=== PATIENT | female | born 1965 | race Caucasian/White ===

== ENCOUNTER 2016-12-20 17:25 | Emergency (ER) | payer OTHER ==
[~2016-12-20] VITALS: Ht 167.6 cm; Wt 4.0 kg
[2016-12-20 17:28] VITALS: TEMP 36.6; Ht 167.6 cm; Wt 4.0 kg
[2016-12-20] MEDS ORDERED: ONDANSETRON INJ 2 MG/ML 2 ML VIAL IV STA (17:40)
[2016-12-20] MEDS ORDERED: SODIUM CHLORIDE 0.9% 1000ML 1,000 ML IV STA (17:40)
[2016-12-20 17:42] VITALS: O2SAT 98
[2016-12-20] MEDS ORDERED: MoRPHine SULFATE 4 MG/ML 1 ML CARP\\VIAL IV PRN (17:45)
--- NOTE | 2016-12-20 17:49 | EMERGENCY ROOM VISIT NOTE ---
History Report prepared by Jodie: Ted Hickey Under the Supervision of: Dr. Garret Art D.O. First contact with patient: 17:31 Chief Complaint: CARDIAC ASSESSMENT Stated Complaint: HEADACHE, DIZZY, PALIPTATIONS- PHYSICIAN REFERRED Nursing Triage Summary: pt reports MCNAMARA x 8 days , pt reports intermittent dizziness and palpitaitons over the last 8 days , reports nausea today History of Present Illness The patient is a 51 year old female who presents to the Emergency Room with complaints of persistent palpitations for the past 8 days. The patient also complains of a headache, feeling dizzy and nauseous with occasional episodes of vomiting. She also notes that she has being having palpitations and with these she has had chest pain and shortness of breath which are getting worse. The patient notes that she has been falling more than usual lately noting that she has fallen twice in the past two weeks. She has been experiencing symptoms similar to these since September and has been presenting to her PCP who recommended today that she come to the ED for further evaluation. She has had a carotid ultrasound, a Holter monitor, and EEG. The Holter monitor showed some occasional PACs and PVCs. She notes she was not experiencing her symptoms while she was wearing the halter monitor. She denies abdominal pain at this time. Source of History: patient Onset: 8 days Position: chest Timing: other (persistent) Associated Symptoms: + SOB, + chest pain, + headache, + nausea, + vomiting, No abdominal pain Note: Other associated symptoms: dizzy, palpitations Review of Systems See HPI for pertinent positives & negatives. A total of 10 systems reviewed and were otherwise negative. Past Medical & Surgical Medical Problems: (1) DVT (deep venous thrombosis) (2) Hypertension (3) Ulcer Family History Patient reports no known family medical history. Social History Smoking Status: Current Every Day Smoker Marital Status: Housing Status: lives with family Occupation Status: unemployed Current/Historical Medications Scheduled Lisinopril (Lisinopril), 20 MG PO QAM Nifedipine Ext Rel (Procardia Xl Ext Rel), 30 MG PO QAM Simvastatin (Zocor), 40 MG PO QPM Trazodone Hcl (Trazodone), 50 MG PO HS Scheduled PRN Acetaminophen (Tylenol), 2,000 MG PO Q3 PRN for Headache Allergies Coded Allergies: Clarithromycin (Unverified Allergy, Unknown, HIVES, 12/20/16) Hydromorphone (Unverified Allergy, Unknown, bradycardia, 12/20/16) Prochlorperazine (Unverified Allergy, Unknown, NAUSEA, 12/20/16) Physical Exam Vital Signs Date Time Temp Pulse Resp B/P Pulse Ox O2 Delivery O2 Flow Rate FiO2 12/20/16 19:00 72 18 160/87 100 Room Air 12/20/16 18:31 72 12/20/16 18:24 66 22 163/83 100 Room Air 12/20/16 17:43 78 18 156/98 96 Room Air 12/20/16 17:42 98 Room Air 12/20/16 17:42 98 Room Air 12/20/16 17:28 36.6 77 20 188/93 97 Room Air Physical Exam GENERAL: Patient is awake alert in no acute distress patient is resting comfortably and showing no signs of anxiety EYES: The conjunctivae are clear. The pupils are round and reactive. EARS, NOSE, MOUTH AND THROAT: The nose is without any evidence of any deformity. Mucous membranes are moist tongue is midline NECK: The neck is nontender and supple. RESPIRATORY: Normal respiratory effort is noted there is no evidence of wheezing rhonchi or rales CARDIOVASCULAR: Regular rate and rhythm noted there no murmurs rubs or gallops normal S1 normal S2 GASTROINTESTINAL: The abdomen is soft. Bowel sounds are present in all quadrants. Abdomen is nontender MUSCULOSKELETAL/EXTREMITIES: There is no evidence of gross deformity full range of motion is noted in the hips and shoulders SKIN: There is no obvious evidence of any rash. There are no petechiae, pallor or cyanosis noted. Pedal edema bilaterally, left greater than right. No specific calf tenderness, Pulses are symmetric bilaterally. NEUROLOGIC: Patient is awake alert and oriented x3 Medical Decision & Procedures ER Provider Diagnostic Interpretation: Radiology results as stated below per my review and radiologist interpretation: HEAD CT NONCONTRAST CT DOSE: 537.48 mGy.cm HISTORY: Headaches MCNAMARA TECHNIQUE: Multiaxial CT images of the head were performed without the use of intravenous contrast. Comparison: None. Findings: The paranasal sinuses and mastoid air cells are clear. The calvarium and skull base are intact. The ventricles and sulci are within normal limits. There is no mass, hematoma, midline shift, or acute infarct. Impression: No acute intracranial abnormality. Electronically signed by: Portillo Paredes M.D. 12/20/2016 6:18 PM Dictated Date/Time: 12/20/2016 6:18 PM CHEST ONE VIEW PORTABLE CLINICAL HISTORY: CHEST PAIN dyspnea COMPARISON STUDY: No previous studies for comparison. FINDINGS: The bones soft tissues and hemidiaphragms are normal. The cardiomediastinal silhouette is normal. The lungs are clear. The pulmonary vasculature is normal. IMPRESSION: Negative chest. Electronically signed by: Portillo Paredes M.D. 12/20/2016 6:07 PM Dictated Date/Time: 12/20/2016 6:07 PM Laboratory Results 12/20/16 17:50 Red Blood Count 4.52, Mean Corpuscular Volume 90.3, Mean Corpuscular Hemoglobin 31.2, Mean Corpuscular Hemoglobin Concent 34.6, Mean Platelet Volume 9.3, Neutrophils (%) (Auto) 58.0, Lymphocytes (%) (Auto) 29.9, Monocytes (%) (Auto) 7.6, Eosinophils (%) (Auto) 3.9, Basophils (%) (Auto) 0.4, Neutrophils # (Auto) 3.28, Lymphocytes # (Auto) 1.69, Monocytes # (Auto) 0.43, Eosinophils # (Auto) 0.22, Basophils # (Auto) 0.02 12/20/16 17:50 Test 12/20/16 17:50 12/20/16 17:57 White Blood Count 5.65 K/uL (4.8-10.8) Red Blood Count 4.52 M/uL (4.2-5.4) Hemoglobin 14.1 g/dL (12.0-16.0) Hematocrit 40.8 % (37-47) Mean Corpuscular Volume 90.3 fL (80-100) Mean Corpuscular Hemoglobin 31.2 pg (25-34) Mean Corpuscular Hemoglobin Concent 34.6 g/dl (32-36) Platelet Count 226 K/uL (130-400) Mean Platelet Volume 9.3 fL (7.4-10.4) Neutrophils (%) (Auto) 58.0 % Lymphocytes (%) (Auto) 29.9 % Monocytes (%) (Auto) 7.6 % Eosinophils (%) (Auto) 3.9 % Basophils (%) (Auto) 0.4 % Neutrophils # (Auto) 3.28 K/uL (1.4-6.5) Lymphocytes # (Auto) 1.69 K/uL (1.2-3.4) Monocytes # (Auto) 0.43 K/uL (0.11-0.59) Eosinophils # (Auto) 0.22 K/uL (0-0.5) Basophils # (Auto) 0.02 K/uL (0-0.2) RDW Standard Deviation 42.6 fL (36.4-46.3) RDW Coefficient of Variation 13.1 % (11.5-14.5) Immature Granulocyte % (Auto) 0.2 % Immature Granulocyte # (Auto) 0.01 K/uL (0.00-0.02) Prothrombin Time 10.7 SECONDS (9.0-12.0) Prothromb Time International Ratio 1.0 (0.9-1.1) Activated Partial Thromboplast Time 25.4 SECONDS (21.0-31.0) Partial Thromboplastin Ratio 1.0 Anion Gap 7.0 mmol/L (3-11) Est Creatinine Clear Calc Drug Dose 5.4 ml/min Estimated GFR () 101.2 Estimated GFR (Non- 87.3 BUN/Creatinine Ratio 11.4 (10-20) Calcium Level 9.8 mg/dl (8.5-10.1) Magnesium Level 2.0 mg/dl (1.8-2.4) Total Bilirubin 0.5 mg/dl (0.2-1) Direct Bilirubin 0.1 mg/dl (0-0.2) Aspartate Amino Transf (AST/SGOT) 11 U/L (15-37) Alanine Aminotransferase (ALT/SGPT) 25 U/L (12-78) Alkaline Phosphatase 57 U/L (45-117) Total Creatine Kinase 72 U/L (26-192) Creatine Kinase MB 1.0 ng/ml (0.5-3.6) Creatine Kinase MB Ratio 1.4 (0-3.0) Troponin I < 0.015 ng/ml (0-0.045) Total Protein 7.2 gm/dl (6.4-8.2) Albumin 3.8 gm/dl (3.4-5.0) Lipase 135 U/L (73-393) Thyroid Stimulating Hormone (TSH) 0.991 uIu/ml (0.300-4.500) Free Thyroxine 1.15 ng/dl (0.80-1.60) Human Chorionic Gonadotropin, Qual NEG (NEG) Bedside D-Dimer 250 ng/mlFEU (0-450) Laboratory results per my review. Medications Administered Medications (Trade) Dose Ordered Sig/Nicki Route Start Time Stop Time Status Last Admin Dose Admin Ondansetron HCl (Zofran Inj) 4 mg NOW STAT IV 12/20/16 17:40 12/20/16 17:42 DC 12/20/16 17:50 4 MG Morphine Sulfate 4 mg 4 mg Q15M PRN IV 12/20/16 17:45 01/03/17 17:44 12/20/16 17:51 4 MG Sodium Chloride (Nss 1000ml) 1,000 ml @ 999 mls/hr Q1H1M STAT IV 12/20/16 17:40 12/20/16 18:40 DC 12/20/16 17:50 999 MLS/HR ECG Indication: palpitations Rate (beats per minute): 79 Rhythm: normal sinus Findings: Q waves (Anterior), no ectopy, other (no ST segment abnormality, poor r wave progression) ED Course 1734: The patient was evaluated in room A10. A complete history and physical examination were performed. 1739: Ordered NSS 1000 ml @ 999 mls/hr IV, Zofran Inj 4 mg IV. 1744: Ordered Morphine Sulfate 4 mg IV/pain. 1905: At this time, I reevaluated the patient and she is still not feeling any better. 1956: At this time, I discussed the patient's case with Dr. Webster - Hospitalist [facility] and he agreed to accept the patient for further evaluation. Medical Decision Differential diagnosis: Etiologies such as premature contractions, electrolyte abnormality, cardiac dysrhythmia, thyroid dysfunction, pulmonary embolism, infection, gastrointestinal, as well as others were entertained. Nursing notes reviewed. The patient is a 51-year-old female who presented to the department for an evaluation of chest discomfort dizziness and headache. The patient states that she's had symptoms which have been ongoing for a few months. She states that she went to see her primary care physician and was sent to our emergency apartment for further cardiac workup. The patient has a family history of sudden cardiac and was very concerned about the palpitations she's been having. She did have a Holter monitor which did not capture any dysrhythmia. I discussed the patient's laboratory and radiographic studies with her. She was treated with IV fluids IV pain medicine and IV antiemetics in the emergency department. She continued to have chest discomfort and I think this is the main reason she came to our emergency Department she was concerned about a cardiac event. I discussed the limitations of the emergency department workup for chest pain with her. Because of her ongoing symptoms I discussed his case with the on- call [facility] hospitalist group. They have agreed to evaluate the patient in the emergency department for further management and disposition. Consults Time Called: 1941 Consulting Physician: Dr. Webster - Hospitalist [facility] Returned Call: 1956 At this time, I discussed the patient's case with Dr. Webster and he agreed to accept the patient for further evaluation. Impression Primary Impression: Precordial chest pain Additional Impressions: Headache Palpitations Scribe Attestation The scribe's documentation has been prepared under my direction and personally reviewed by me in its entirety. I confirm that the note above accurately reflects all work, treatment, procedures, and medical decision making performed by me. Departure Information Dispostion Being Evaluated By Hospitalist Referrals No Doctor, Assigned (PCP) Problem Qualifiers
[2016-12-20] MEDS ORDERED: SIMV40TA2 PO (17:51)
[2016-12-20] MEDS ORDERED: TRAZ50TA35 PO (17:51)
[2016-12-20] MEDS ORDERED: NIFE30TA83 PO (17:51)
[2016-12-20] MEDS ORDERED: LSN20 PO (17:51)
[2016-12-20] MEDS ORDERED: ACET-1256 PO (17:52)
[2016-12-20 18:01] LABS: BASO % 0.4 %; BASO ABS # 0.02 K/uL (0-0.2); COMPLETE YES; EOS % 3.9 %; HEMATOCRIT 40.8 % (37-47); IG% 0.2 %; LYMPH % 29.9 %; LYMPH ABS # 1.69 K/uL (1.2-3.4); MEAN CELL VOLUME 90.3 fL (80-100); MEAN CORPUSCULAR HEMOGLOBIN 31.2 pg (25-34); MEAN CORPUSCULAR HGB CONC 34.6 g/dl (32-36); MEAN PLATELET VOLUME 9.3 fL (7.4-10.4); MONO % 7.6 %; PLATELET COUNT 226 K/uL (130-400); RED BLOOD COUNT 4.52 M/uL (4.2-5.4); WHITE BLOOD COUNT 5.65 K/uL (4.8-10.8)
--- NOTE | 2016-12-20 18:09 | DIAGNOSTIC IMAGING REPORT ---
CHEST ONE VIEW PORTABLE CLINICAL HISTORY: CHEST PAIN dyspnea COMPARISON STUDY: No previous studies for comparison. FINDINGS: The bones soft tissues and hemidiaphragms are normal. The cardiomediastinal silhouette is normal. The lungs are clear. The pulmonary vasculature is normal. IMPRESSION: Negative chest. Electronically signed by: Portillo Paredes M.D. 12/20/2016 6:07 PM Dictated Date/Time: 12/20/2016 6:07 PM
[2016-12-20 18:12] LABS: PROTHROMBIN TIME (PATIENT) 10.7 SECONDS (9.0-12.0)
[2016-12-20 18:20] LABS: ALT/SGPT 25 U/L (12-78); AST/SGOT 11 U/L (15-37); BLOOD UREA NITROGEN 9 mg/dl (7-18); BUN/CREATININE RATIO 11.4 (10-20); CALCIUM 9.8 mg/dl (8.5-10.1); CARBON DIOXIDE 25 mmol/L (21-32); CHLORIDE 107 mmol/L (98-107); CREATININE 0.79 mg/dl (0.60-1.20); GLUCOSE 94 mg/dl (70-99); POTASSIUM 3.9 mmol/L (3.5-5.1); SODIUM 139 mmol/L (136-145)
--- NOTE | 2016-12-20 18:20 | DIAGNOSTIC IMAGING REPORT ---
HEAD CT NONCONTRAST CT DOSE: 537.48 mGy.cm HISTORY: Headaches MCNAMARA TECHNIQUE: Multiaxial CT images of the head were performed without the use of intravenous contrast. Comparison: None. Findings: The paranasal sinuses and mastoid air cells are clear. The calvarium and skull base are intact. The ventricles and sulci are within normal limits. There is no mass, hematoma, midline shift, or acute infarct. Impression: No acute intracranial abnormality. Electronically signed by: Portillo Paredes M.D. 12/20/2016 6:18 PM Dictated Date/Time: 12/20/2016 6:18 PM
[2016-12-20 18:28] LABS: ALKALINE PHOSPHATASE 57 U/L (45-117); CKMB/CK RATIO 1.4 (0-3.0); THYROID STIMULATING HORMONE 0.991 uIu/ml (0.300-4.500)
[2016-12-20 18:31] LABS: PREG INTERNAL NEGATIVE QC NEG CLEAR BACKGROUND; PREG INTERNAL POSITIVE QC POS CONTROL LINE
--- NOTE | 2016-12-20 21:23 | History and Physical ---
History & Physical Date & Time of Service: Dec 20, 2016 at 21:05 Chief Complaint: Headache, Dizzy, Paliptations- Physician Referred Primary Care Physician: No Doctor, Assigned History of Present Illness Source: patient 51 y/o F w/Hx recurrent near-syncopal episodes, HTN, chronic palpitations, tobacco abuse. Pt apparently has been feeling unwell for at least over 1 year and exceptionally poorly for 3 or more months. She describes a constellation of symptoms which include generalized body aches, near syncopal episodes, palpitations, SOB and intermittent central CP. She has had an extensive cardiac workup including recent Halter monitoring, negative stress testing and a cardiac cath 11/04 showing minor luminal irregularities on her RCA and LAD. Report from recent ambulatory monitoring states that there were no significant arrhythmias - occasional PACs or PVCs were seen. She has had difficult to control HTN and was evaluated for Pheochromocytoma recently which was also negative. Due to her persistent symptoms, she was sent to [facility] for evaluation by her primary MD. ER evaluation revealed a mildly elevated BP, normal labs and an EKG without any acute changes. Past Medical/Surgical History Medical Problems: (1) DVT (deep venous thrombosis) Status: Resolved (2) Hypertension Status: Chronic (3) Ulcer Status: Resolved Family History Patient reports no known family medical history. Social History Smoking Status: Current Every Day Smoker Marital Status: Occupational Status: unemployed Multi-Drug Resistant Organisms History of MDRO: No Allergies Coded Allergies: Clarithromycin (Unverified Allergy, Unknown, HIVES, 12/20/16) Hydromorphone (Unverified Allergy, Unknown, bradycardia, 12/20/16) Prochlorperazine (Unverified Allergy, Unknown, NAUSEA, 12/20/16) Home Medications Scheduled Lisinopril (Lisinopril), 20 MG PO QAM Nifedipine Ext Rel (Procardia Xl Ext Rel), 30 MG PO QAM Simvastatin (Zocor), 40 MG PO QPM Trazodone Hcl (Trazodone), 50 MG PO HS Scheduled PRN Acetaminophen (Tylenol), 2,000 MG PO Q3 PRN for Headache Review of Systems Constitutional: No chills, No fever, No sweats Eyes: No eye pain, No worsening of vision ENT: No hearing loss, No nasal symptoms, No unusual epistaxis Respiratory: + dyspnea at rest, + dyspnea on exertion, + shortness of breath, No cough, No sputum, No wheezing Cardiovascular: + chest pain, No PND, No claudication, No edema, No orthopnea Abdomen: + nausea, No pain, No vomiting Musculoskeletal: + joint pain, + muscle pain Genitourinary - Female: No dysuria, No urinary frequency, No urinary urgency Neurologic: + problem reported (headache), + weakness, No memory loss, No paralysis Psychiatric: + depression symptoms Endocrine: + fatigue Hematologic / Lymphatic: No abnormal bleeding/bruising Integumentary: No rash Allergic / Immunologic: No environmental allergies Physical Exam Vital Signs Date Time Temp Pulse Resp B/P Pulse Ox O2 Delivery O2 Flow Rate FiO2 12/20/16 20:00 72 18 97/89 100 Room Air 12/20/16 19:00 72 18 160/87 100 Room Air 12/20/16 18:31 72 12/20/16 18:24 66 22 163/83 100 Room Air 12/20/16 17:43 78 18 156/98 96 Room Air 12/20/16 17:42 98 Room Air 12/20/16 17:42 98 Room Air 12/20/16 17:28 36.6 77 20 188/93 97 Room Air General Appearance: WD/WN, no apparent distress Head: normocephalic, atraumatic Eyes: normal inspection, EOMI ENT: normal ENT inspection, hearing grossly normal, TMs normal, pharynx normal Neck: supple, thyroid normal Respiratory/Chest: chest non-tender, lungs clear, normal breath sounds, no respiratory distress, no accessory muscle use Cardiovascular: regular rate, rhythm, no edema, no gallop, no JVD, no murmur, normal peripheral pulses Abdomen/GI: normal bowel sounds, non tender, soft Back: normal inspection, no muscle spasm Extremities/Musculoskelatal: normal inspection, no calf tenderness, normal capillary refill, no pedal edema, normal range of motion 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, no motor/sensory deficits, alert, normal mood/affect, normal reflexes, oriented x 3 Skin: normal color, warm/dry, no rash, + pertinent finding (facial hirsutism ) Diagnostics Laboratory Results Results Past 24 Hours Test 12/20/16 17:50 12/20/16 17:57 Range/Units White Blood Count 5.65 4.8-10.8 K/uL Red Blood Count 4.52 4.2-5.4 M/uL Hemoglobin 14.1 12.0-16.0 g/dL Hematocrit 40.8 37-47 % Mean Corpuscular Volume 90.3 80-100 fL Mean Corpuscular Hemoglobin 31.2 25-34 pg Mean Corpuscular Hemoglobin Concent 34.6 32-36 g/dl Platelet Count 226 130-400 K/uL Mean Platelet Volume 9.3 7.4-10.4 fL Neutrophils (%) (Auto) 58.0 % Lymphocytes (%) (Auto) 29.9 % Monocytes (%) (Auto) 7.6 % Eosinophils (%) (Auto) 3.9 % Basophils (%) (Auto) 0.4 % Neutrophils # (Auto) 3.28 1.4-6.5 K/uL Lymphocytes # (Auto) 1.69 1.2-3.4 K/uL Monocytes # (Auto) 0.43 0.11-0.59 K/uL Eosinophils # (Auto) 0.22 0-0.5 K/uL Basophils # (Auto) 0.02 0-0.2 K/uL RDW Standard Deviation 42.6 36.4-46.3 fL RDW Coefficient of Variation 13.1 11.5-14.5 % Immature Granulocyte % (Auto) 0.2 % Immature Granulocyte # (Auto) 0.01 0.00-0.02 K/uL Prothrombin Time 10.7 9.0-12.0 SECONDS Prothromb Time International Ratio 1.0 0.9-1.1 Activated Partial Thromboplast Time 25.4 21.0-31.0 SECONDS Partial Thromboplastin Ratio 1.0 Sodium Level 139 136-145 mmol/L Potassium Level 3.9 3.5-5.1 mmol/L Chloride Level 107 98-107 mmol/L Carbon Dioxide Level 25 21-32 mmol/L Anion Gap 7.0 3-11 mmol/L Blood Urea Nitrogen 9 7-18 mg/dl Creatinine 0.79 0.60-1.20 mg/dl Est Creatinine Clear Calc Drug Dose 5.4 ml/min Estimated GFR () 101.2 Estimated GFR (Non- 87.3 BUN/Creatinine Ratio 11.4 10-20 Random Glucose 94 70-99 mg/dl Calcium Level 9.8 8.5-10.1 mg/dl Magnesium Level 2.0 1.8-2.4 mg/dl Total Bilirubin 0.5 0.2-1 mg/dl Direct Bilirubin 0.1 0-0.2 mg/dl Aspartate Amino Transf (AST/SGOT) 11 15-37 U/L Alanine Aminotransferase (ALT/SGPT) 25 12-78 U/L Alkaline Phosphatase 57 45-117 U/L Total Creatine Kinase 72 26-192 U/L Creatine Kinase MB 1.0 0.5-3.6 ng/ml Creatine Kinase MB Ratio 1.4 0-3.0 Troponin I < 0.015 0-0.045 ng/ml Total Protein 7.2 6.4-8.2 gm/dl Albumin 3.8 3.4-5.0 gm/dl Lipase 135 73-393 U/L Thyroid Stimulating Hormone (TSH) 0.991 0.300-4.500 uIu/ml Free Thyroxine 1.15 0.80-1.60 ng/dl Human Chorionic Gonadotropin, Qual NEG NEG Bedside D-Dimer 250 0-450 ng/mlFEU Diagnostic Radiology Head CT WNL Normal EKG Impression Assessment and Plan 51 y/o F w/Hx recurrent near-syncopal episodes, HTN, chronic palpitations, tobacco abuse. Pt apparently has been feeling unwell for at least over 1 year and exceptionally poorly for 3 or more months. She describes a constellation of symptoms which include generalized body aches, near syncopal episodes, palpitations, SOB and intermittent central CP. She has had an extensive cardiac workup including recent Halter monitoring, negative stress testing and a cardiac cath 11/04 showing minor luminal irregularities on her RCA and LAD. Report from recent ambulatory monitoring states that there were no significant arrhythmias - occasional PACs or PVCs were seen. She has had difficult to control HTN and was evaluated for Pheochromocytoma recently which was also negative. Due to her persistent symptoms, she was sent to [facility] for evaluation by her primary MD. ER evaluation revealed a mildly elevated BP, normal labs and an EKG without any acute changes. The pt has widespread persistent symptoms and has been under evaluation for over 1 year. She has undergone stress testing, halter monitoring and a cath, none of which have elucidated a cause for her symptoms. She does not have any acute abnormalities on labs, EKG or imaging and vital signs have been stable. Considering her persistent near-syncopal episodes it may be prudent t have her on a long-term implantable monitor. Based on the above however, I do not feel she merits admission to the hospital for acute treatment. The above will be discussed with the ER attending and pt. Please consider the above a consult Total time spent on this consult including review of extensive records - outpt records and cath report, labs, ekg, imaging - discussion with pt and ER attending 37 min
[2016-12-20 22:30] VITALS: BP 144/87; PULSE 76; O2SAT 96
== END 2016-12-20 22:31 | disposition home or self-care (01) ==
LOC: C.EDB 17:27 → C.EDA 22:31
DX: R07.2 Precordial pain (principal); R51 Headache; R00.2 Palpitations; I10 Essential (primary) hypertension; Z86.718 Personal history of other venous thrombosis and embolism; F17.200 Nicotine dependence, unspecified, uncomplicated; Z79.899 Other long term (current) drug therapy; Z88.5 Allergy status to narcotic agent; Z88.8 Allergy status to other drugs, medicaments and biological substances